=== PATIENT | male | born 1950 | race Two or more races ===

== ENCOUNTER 2018-10-24 09:43 | Day surgery (SDC) | payer MEDICARE ==
[2018-10-24] VITALS (10 sets, daily range): BP systolic 106–138; BP diastolic 50–80
[~2018-10-24] VITALS: Ht 174 cm; Wt 97.5 kg
[~2018-10-24 09:43] MED LIST: ASPIR 8181 MG ORAL; Bacitracin 50000 Units Vial ONE; CLOPIDOGREL75 MG ORAL; FENOFIBRATE145 M1 ORAL; HYDROCHLOROTHIA25 MG ORAL; Ketorolac 30mg Inj ONE; LISINOPRIL5 MG ORAL; Lidocaine 1% MPF 10mg/ml 5ml ONE; METOPROLOL SUCC25 MG ORAL; Midazolam 2mg/2ml Inj ONE; NeoSporin Gu Irrig 1ml Amp IRRIG ONE; Propofol 200mg/20ml IV ONE; Succinylcholine 20mg/ml 10ml vial ONE; Zemuron 50mg/5ml Inj IV ONE; fentaNYL 100 mcg/2 mL IV ONE
[2018-10-24] MEDS ORDERED: LR 1000ml ONE (09:44)
[2018-10-24] MEDS ORDERED: NS Irrig 1000ml ONE (10:14)
[2018-10-24] MEDS ORDERED: Sterile Water Irrig 1000ml IRRIG ONE (10:14)
[2018-10-24] MEDS ORDERED: NS Irrig 1000ml IRRIG ONE (10:40)
--- NOTE | 2018-10-24 10:40 | Pre-Procedure Note/Attestation ---
Pre-Procedure Note/Attestation Complete Prior to Procedure Planned Procedure: not applicable Procedure Narrative: ventral hernia repair with mesh Indications for Procedure Pre-Operative Diagnosis: ventral hernia Attestation I attest that I discussed the nature of the procedure; its benefits; risks and complications; and alternatives (and the risks and benefits of such alternatives ), prior to the procedure, with the patient (or the patient's legal veterans service representative). I attest that, if there was a reasonable possibility of needing a blood transfusion, the patient (or the patient's legal veterans service representative) was given the [facility] standardized written summary, pursuant to the Jeanmarie Staci Blood Safety Act ([place] Health and Safety Code # 1645, as amended). I attest that I re-evaluated the patient just prior to the surgery and that there has been no change in the patient's H&P, except as documented below: Matias Shrestha Oct 24, 2018 10:40
[2018-10-24] MEDS ORDERED: ceFAZolin sod 2 GM in D5W 110 ML IV ONE (10:45)
[2018-10-24] MEDS ORDERED: LR 1000ml 1,000 ML IVLG SCH (11:04)
--- NOTE | 2018-10-24 11:04 | Anethesia Preoperative Eval ---
Anesthesia Pre-op PMH/ROS General Date of Evaluation: Oct 24, 2018 Time of Evaluation: 10:20 Anesthesiologist: Mercedse ASA Score: ASA 3 Mallampati Score Class I : Soft palate, uvula, fauces, pillars visible Class II: Soft palate, uvula, fauces visible Class III: Soft palate, base of uvula visible Class IV: Only hard plate visible Mallampati Classification: Class III Surgeon: Jose De Jesus Diagnosis: Ventral hernia Surgical Procedure: Ventral hernia repair Anesthesia History: none Social History: smoking - h/o Family History: no anesthesia problems Allergies: Coded Allergies: No Known Allergies (Unverified , 10/24/18) Medications: see eMAR Patient NPO?: Yes Past Medical History Cardiovascular: Reports: HTN - table on pills, CAD - no recent CP, [place] - stable after stent placement; Denies: valve dz, arrhythmia, other Pulmonary: Reports: SEAN; Denies: asthma, COPD, other Gastrointestinal/Genitourinary: Reports: GERD; Denies: CRI, ESRD, other Neurologic/Psychiatric: Denies: dementia, CVA, depression/anxiety, TIA, other Endocrine: Denies: DM, hypothyroidism, steroids, other HEENT: Denies: cataract (L), cataract (R), glaucoma, MIAMI (L), [place] (R), other Hematology/Immune: Denies: anemia, DVT, bleeding disorder, other Musculoskeletal/Integumentary: Denies: OA, RA, DJD, DDD, edema, other Other: obesity PMH Narrative: as above PSxH Narrative: Appendectomy, coronary angiogram with stent placement Anesthesia Pre-op Phys. Exam Physician Exam Last Vital Signs Date Time Temp Pulse Resp B/P (MAP) Pulse Ox O2 Delivery O2 Flow Rate FiO2 10/24/18 10:18 Room Air 10/24/18 10:10 97.6 63 18 138/80 99 Constitutional: NAD Neurologic: CN 2-12 intact Cardiovascular: RRR, no M/R/G Respiratory: CTA Airway Exam Mallampati Score: Class III MO: full Neck: short ROM: limited Teeth: intact Dentures: no upper, no lower Anesthesia Pre-op A/P Labs see chart Studies Pre-op Studies: EKG - NSR Risk Assessment & Plan Assessment: ASA 3 Plan: GA wth ETT Status Change Before Surgery: No Pre-Antibiotics Drug: Ancef 2gr Given Within 1 Hr of Incision: Yes Time Given: 10:48 Michael Long MD Oct 24, 2018 11:04
[2018-10-24] MEDS ORDERED: Glycopyrrolate 0.2mg/ml 1ml Vial ONE (11:08)
[2018-10-24] MEDS ORDERED: Hydromorphone 0.5mg/0.5ml inj IVP PRN (11:15)
[2018-10-24] MEDS ORDERED: DiphenhydrAMINE 50mg/ml Inj IVP PRN (11:15)
[2018-10-24] MEDS ORDERED: Ketorolac 30mg Inj IV PRN (11:15)
--- NOTE | 2018-10-24 11:28 | Brief Operative Note ---
Immediate Post Operative Note Operative Note Pre-op Diagnosis: ventral hernia Procedure: ventral hernia repair with mesh Post-op Diagnosis: incarcerated fat containing ventral hernia Surgeon: juan pablo Anesthesiologist: kanu Anesthesia: general, local Specimen: yes Complications: none Condition: stable Fluids: see records Estimated Blood Loss: minimal Drains: none Implant(s) used?: Yes Matias Shrestha Oct 24, 2018 11:27
[2018-10-24] MEDS ORDERED: HYDROmorphone 1mg/ml Carpuject SUBQ PRN (11:30)
[2018-10-24] MEDS ORDERED: Tylenol #3 tab (300mg/30mg) ORAL PRN (11:30)
[2018-10-24] MEDS ORDERED: HYDROcodone/Acetamin 5/325 tab ORAL PRN (11:30)
--- NOTE | 2018-10-24 11:39 | Immediate Post-Op Evaluation ---
Immediate Post-Op Evalulation Immediate Post-Op Evalulation Procedure: Ventral hernia repair Date of Evaluation: Oct 24, 2018 Time of Evaluation: 11:38 IV Fluids: 600 Blood Products: none Estimated Blood Loss: min Urinary Output: none Blood Pressure Systolic: 132 Blood Pressure Diastolic: 75 Pulse Rate: 72 Respiratory Rate: 20 O2 Sat by Pulse Oximetry: 99 Temperature (Fahrenheit): 97.5 Pain Score (1-10): 1 Nausea: No Vomiting: No Complications none Patient Status: reacts, patent, extubated, none Hydration Status: adequate Michael Long MD Oct 24, 2018 11:39
[2018-10-24] MEDS ORDERED: D5 1/2NS 1,000 ML IV SCH (13:00)
--- NOTE | 2018-10-24 22:00 | Operative Note - Dictated ---
DATE OF OPERATION: 10/24/2018 PREOPERATIVE DIAGNOSIS: Ventral hernia. POSTOPERATIVE DIAGNOSES: 1. Incarcerated ventral hernia. 2. Fat incarceration. OPERATION PERFORMED: Ventral hernia repair with mesh. ATTENDING SURGEON: Matias Shrestha M.D. MARKETING INFORMATION COORDINATOR: None. ANESTHESIOLOGIST: Michael Long M.D. ANESTHESIA: General GETA plus local. ESTIMATED BLOOD LOSS: Minimal. IV FLUIDS: Please see anesthesia records. COMPLICATIONS: None. DRAINS: None. COUNTS: Sponge and needle counts correct x2. SPECIMENS: Hernia sac with contents. IMPLANTS: Bard Ventralight hernia patch, lot number [id number], reference [id number], expiration 01/16/2020. INDICATIONS FOR PROCEDURE: This is a 68-year-old male who was referred to me from his primary care physician after identifying to have a ventral hernia that was becoming tortuous with wound and tenderness. The patient was initially seen in the office and when evaluated, identified to have incarcerated ventral hernia with infection of the skin. The patient was started on antibiotics and local wound care, given abrasion of the dermis and sent to his primary care physician and php mysql web developer for clearance. Following clearance, planned surgery for ventral hernia repair with mesh was scheduled. Risks, benefits, and alternatives were discussed with the patient in detail, who expressed understanding and consented for surgery. Infection was cleared prior to surgery. The patient did have a healing wound requiring excision of a portion of the skin given the identifiable prior incarceration. OPERATIVE NOTE: The patient was taken to the operating room and placed on the operating table in supine position with bilateral arms out. All bony prominences well padded. SCDs were placed. Preoperative time-out taken to identify the patient, procedure, operative staff, and surgical staff. General anesthesia was induced and the patient was intubated. The patient received IV antibiotics one hour prior to cut time. The abdomen was clipped, prepped, draped in standard surgical fashion. Given the patient's prior incarceration and a local infection, which is not clear, there was a scar and scab in the midline belly button that required excision. An elliptical incision was made in the area of the ventral hernia around the umbilicus using a fresh #11 scalpel and carried down through the dermis where incarcerated fat was identified in hernia sac. The fat was directly attached to the dermis. The fat was divided and ligated and identified to be omental fat. It was divided with a 3-0 Vicryl suture. The hernia sac and fatty contents that were incarcerated with the area of the skin ellipse were sent to pathology for review. The remaining portions of the omentum that could be identified were hemostatic and placed in the anatomical position. A hernia defect approximately 1.5 to 2 cm was identified in the midline. The fascia was cleared for approximately a centimeter circumferentially in the hernia sac. The remaining portions of hernia sac were reduced and the edges of the fascia were freshened. Following this, a Bard Ventralex hernia patch was brought to the operative field. Using 0 Prolene sutures, the patch was sutured into place ensuring to close the hernia defect. Satisfactory hernia repair with mesh was identified at the end of the closure and repair with mesh. At this time, the wound was irrigated and cleansed. Local anesthetic was infiltrated throughout the procedure for the patient's comfort. The remaining defect was then reapproximated in a two-layer fashion beginning with 3-0 Vicryl interrupted sutures for the subcutaneous tissue followed by 4-0 Monocryl interrupted subcuticular sutures to recreate the umbilicus for the patient. The skin was cleansed. Steri-Strips and skin glue were applied followed by dressings. The patient tolerated the procedure well, was extubated, taken to postanesthetic care unit in stable condition. Matias Shrestha M.D. DR: Fernandez JOB#: [id number] CC:
[2018-10-26 11:30] VITALS: BP 136/78
--- NOTE | 2018-10-26 11:30 | 48 Hour Post Anesthesia Eval ---
Post Anesthesia Evaluation Procedure: Ventral hernia repair Date of Evaluation: Oct 24, 2018 Time of Evaluation: 12:05 Blood Pressure Systolic: 136 0: 78 Pulse Rate: 64 Respiratory Rate: 22 Temperature (Fahrenheit): 97.9 O2 Sat by Pulse Oximetry: 98 Airway: patent Nausea: No Vomiting: No Pain Intensity: 2 Hydration Status: adequate Cardiopulmonary Status: stable Mental Status/LOC: patient returned to baseline Follow-up Care/Observations: n/a Post-Anesthesia Complications: none Follow-up care needed: ready to discharge Michael Long MD Oct 26, 2018 11:30
== END 2018-10-24 13:10 | disposition home or self-care (01) ==
LOC: SUR 09:43 → MERGE 11:30 → SUR 13:10
DX: K43.6 Other and unspecified ventral hernia with obstruction, without gangrene (principal); I25.2 Old myocardial infarction; Z95.5 Presence of coronary angioplasty implant and graft; I11.9 Hypertensive heart disease without heart failure; I51.9 Heart disease, unspecified; G47.33 Obstructive sleep apnea (adult) (pediatric); K21.9 Gastro-esophageal reflux disease without esophagitis; E66.9 Obesity, unspecified; Z87.891 Personal history of nicotine dependence; Z90.89 Acquired absence of other organs; Z68.32 Body mass index [BMI] 32.0-32.9, adult
CPT/HCPCS: 49561; 49568; C1781; J0330; J0690; J1885; J2250; J2704; J3010; 94003; 94150